=== PATIENT | female | born 1990 | race Caucasian/White ===

== ENCOUNTER 2024-04-13 01:52 | Day surgery (SDC) | payer OTHER, SELFPAY ==
--- NOTE | 2024-04-07 10:21 | SUR.PREOP ---
Report to the Outpatient Waiting Room, entrance under the green pavilion located off [facility], at time 0800 on date 04/13/24. Planned Procedure Time: 1000. Time changes happen often and if your time is changed the preop area will call you the afternoon before. - You and your visitor will be asked to self-screen and do not enter if you have any COVID symptoms. - A mask is optional within the hospital at this time. Patients may have clear liquids (water, carbonated beverages, clear teas, apple juice) until 3 hours prior to surgery with a maximum of 20 ounces. - NO CLEAR LIQUIDS AFTER 0700 - No food from midnight until time of surgery - Infants may have breast milk until 4 hours before surgery, formula 6 hours prior to surgery. - Children will be allowed to drink immediately following surgery. If applicable, please bring a bottle or sippy cup to assist with drinking. Juice, water, soda, and popsicles are readily available. For infants on formula, please bring formula the day of surgery. Pacifiers are allowed. Take the following medications with a SIP of water the morning of surgery: NONE DO NOT STOP ANY OF YOUR OTHER PRESCRIPTION MEDICATIONS PRIOR TO SURGERY ?EXCEPT THE FOLLOWING Medications to discontinue per physician STOP VITAMINS & SUPPLEMENTS 04/10/24, INSTRUCTED TO CALL DR CHENEY IN REGARDS TO STOPPING FISH OIL Please no make-up, nail swedish, hairspray, perfume, deodorant, or body powder the day of surgery. No jewelry (including any body piercings) or valuables the day of surgery, leave them at home. Please take a shower or bath the night before, or the morning of, surgery with an antibacterial soap. Wear comfortable, loose fitting clothing. Children are encouraged to wear pajamas. - Jewelry must be removed prior to entering the operating room. Rings and piercings that are not removed may be cut off. - The hospital will not accept responsibility for valuables. - Please leave all valuables, including medications, at home the day of surgery. If you are going home after surgery, a licensed company truck driver must drive you home. - NO public transportation without another adult if you receive anesthesia. - We recommend that an adult stay with you for 24 hours following discharge. - We also recommend that you do not drive, make important decision, drink alcoholic beverages, or take any drugs that were not prescribed by your health care provider for at least 24 hours after your discharge time. For Pediatric surgeries, we recommend two adults accompany the child home. Follow any additional instructions given to you from your surgeon. If you or anyone in your household have experienced Covid symptoms in the past week, please notify your surgeon or the nurse liaison at the phone number below for possible testing. Telephone instructions given to KAYLEN ALONSO and asked if any additional questions and then verbalized understanding. Patient advised to call surgeon office or pre surgery nurse liaison [phone] if any additional questions.
[2024-04-07 10:43] VITALS: BMI 42.9
[2024-04-13] VITALS (8 sets, daily range): BP systolic 130–149; BP diastolic 92–99; PULSE 72–108; RESP 11–16; TEMP 36.3–36.8; O2SAT 96–100
[2024-04-13] MEDS: ACETAMINOPHEN 500 MG TABLET 1000 MG PO (08:50)
[2024-04-13] MEDS: LACTATED RINGERS 1,000 ML 30 ML IV CONT (08:50)
[2024-04-13] MEDS: KETOROLAC 15 MG/ML VIAL (*BKC) IV PUSH (08:50)
--- NOTE | 2024-04-13 09:08 | WPDHPUPDATE1 ---
History and Physical Update Update Date/Time: 04/13/24 09:08 History and Physical has been reviewed, including an updated exam of the patient. There are NO changes in the patient's condition. Risks, benefits, and alternatives have been discussed and questions answered. Patient agrees to proceed with procedure.
--- NOTE | 2024-04-13 09:09 | P.PNAN_ITS ---
Anes - Initial Pre Proc Eval Procedure: Operation Date: 04/13/24 10:00 Proposed Procedures p Bilateral Laparoscopic Salpingectomy - Durga Kelley MD Date/Time: 04/13/24 09:09 Surgeon: Durga Kelley MD Pre Op Diagnosis: hydrosalpinx Patient Data Age: 33 Gender: F Height: 1.63 m Weight: 113.5 kg Allergies Allergy/AdvReac Type Severity Reaction Status Date / Time No Known Allergies Allergy Verified 04/07/24 10:34 Home Medications Medication Instructions Recorded Confirmed Type CoQ10 SG 100 100 mg PO DAILY 04/07/24 04/07/24 History omega-3 fatty acids-vitamin E 1 cap PO DAILY 04/07/24 04/07/24 History 1,000 mg capsule prenat.vits,irina,dfm-pjqm-nkumm 1 tablet PO DAILY 04/07/24 04/07/24 History Patient hx anesthesia problems: none Family hx anesthesia problems: none Results Review: All pre-operative results and documents have been reviewed as part of the pre- operative evaluation. [facility] Social History Social History Smoking packs per day: 1 Smoking cigarettes per day: 20.0 Years smoked: 12 Smoking pack-years: 12.00 Smoking status: Former smoker Tobacco type: cigarettes Smoking end date: 05/31/23 Alcohol intake: current Substance use: current Substance use type: marijuana Other substance usage details: MARIJUANA ~1 X PER MONTH Living arrangements: with family Spiritual care concerns: No Anes - Eval Final PreProcedure Day of Procedure 04/13/24 09:09 Patient weight: morbidly obese Heart: regular rate and rhythm Lungs: clear to auscultation Airway: Mallampati scale class II Neurological: alert and oriented Last oral intake: >/= 8 hours ASA classification: III Emergent: no Anesthetic plan: proceed Anesthesia type and monitoring: general ETT and standard monitoring Results Review: All pre-operative results and documents have been reviewed as part of the pre- operative evaluation. Informed Consent: The patient's anesthetic plan and its attendant risks and benefits were discussed with the patient/family/POA. Questions were solicited and answers provided to the satisfaction of the patient/family/POA.
--- NOTE | 2024-04-13 10:16 | SUR.OPER ---
right fallopian tube and left fallopian tube were sent permanently, separately. order for bilateral tubes put in by mistake after surgeon changed his mind; per jason in lab they will cancel the order for the bilateral fallopian tubes and keep orders for right fallopian tube and left fallopian tube.
--- NOTE | 2024-04-13 10:42 | W.PM.PROC2 ---
Procedure Note - Detailed Date of Procedure 04/13/24 Pre-op Diagnosis hydrosalpinx , pelvic pain Post-op Diagnosis Same Procedure Performed Laparoscopic bilateral salpingectomy, fulguration of endometriosis Surgeon Durga Kelley MD Anesthesia General Findings right-sided hydrosalpinx, endometriosis in area of the paracervical peritoneum bilaterally. Description of Procedure The patient was taken the operating room. She was prepped and draped in the dorsal lithotomy position after induction of general anesthesia. A 5 mm skin incision was made in the left upper quadrant of the abdominal skin. A 5 mm trocar was inserted the intra-abdominal cavity under direct visualization of the scope. Pneumoperitoneum was achieved. A 5 mm trocar was inserted in the left lower quadrant identical fashion. A 5 mm infraumbilical trocar was inserted in identical fashion as well. The bilateral fallopian tubes were removed. This was done by using a LigaSure cautery. The mesosalpinx adjacent to the tube was cauterized transected with LigaSure. This was initiated in the area the ovary and in a stepwise fashion moved medially to the area of the cornu of the uterus. Once there the fallopian tube was cauterized and transected. This was done in identical fashion on each side. The fallopian tubes were taken out through the left lower quadrant trocar site. Endometriosis was cauterized in the paracervical peritoneum bilaterally. The pneumoperitoneum was reduced. The trocars removed. The skin was closed with subcuticular 4 Monocryl and covered with Dermabond. She was taken to cover stable condition. Sponge lap and needle counts were correct x2. Estimated Blood Loss 5 Drains No Packing No Pathology Yes Complications No immediate complications Condition Stable Disposition PACU
[2024-04-13] MEDS: oxyCODONE HCL (*CRX) 5 MG TAB IR PO (11:20)
== END 2024-04-13 12:05 | disposition home or self-care (01) ==
PROVIDERS: Visit Provider Obstetrics & Gynecology
PROC: (CPT 49320; principal; 2024-04-13 10:00)
DX: N70.11 Chronic salpingitis (principal); N80.399 Endometriosis of the pelvic peritoneum, other specified sites, unspecified depth; Z87.891 Personal history of nicotine dependence; F12.90 Cannabis use, unspecified, uncomplicated; E66.01 Morbid (severe) obesity due to excess calories; Z68.41 Body mass index [BMI] 40.0-44.9, adult
CPT/HCPCS: 58661; 58662; 88302; 88305; A9270; J1100; J1596; J1885; J2250; J2405; J2704; J3010; J7120